=== PATIENT | female | born 1955 | race Asian ===

== ENCOUNTER 2018-12-23 14:30 | Outpatient (AMBR) | payer MEDICARE, MEDICAID, SELFPAY ==
--- NOTE | 2018-12-06 14:18 | PT.ODAYNRPT ---
PT Outpatient Daily Note Date of Service: December 06, 2018 OP Daily Note Pediatric or Adult Patient: Adult PT >13 Visit Reasons: shoulder pain Outpatient Physical Therapy Treatment Date: 12/06/18 Subjective: no new complaints Objective: pls see FS Assessment: Patient were given gentle passive stretching with joint mobilization tech. Patient has pain upon movement. ROM AROM //. PROM Shoulder flexion 118 deg // 140 deg Abduction 90 deg // 100 deg ER 10 deg // 20 deg IR 70 deg // 80 deg Plan: To continue POC toward goals Pain Present Currently: Yes Length of Time (minutes) of Treatment: 30 Minutes
--- NOTE | 2018-12-09 12:25 | PT.ODAYNRPT ---
PT Outpatient Daily Note Date of Service: December 09, 2018 OP Daily Note Pediatric or Adult Patient: Adult PT >13 Visit Reasons: shoulder pain Outpatient Physical Therapy Treatment Date: 12/09/18 Subjective: No new complaints Objective: pls see FS for therapy procedure today. Assessment: Patient were given strengthening ex on LUE to promote ms strengthening and joint mobilization technique. Patient has LOM on all movement of the L shoulder. Patient were given yellow TB to do HEP at home. Plan: To continue POC toward goals. Pain Present Currently: Yes Length of Time (minutes) of Treatment: 30 Minutes Office Procedures PT Procedures PT Date of Service: 12/06/18 Therapeutic Exercise 15 minutes: Yes Manual Registered Nurse Fetal 15 minutes: Yes
--- NOTE | 2018-12-13 14:11 | PTNOTE_ITS ---
PT Outpatient Daily Note Date of Service: December 13, 2018 OP Daily Note Visit Reasons: shoulder pain Outpatient Physical Therapy Treatment Date: 12/13/18 Subjective: pt reported having pain of the shoulder upon visit. pt has diffiuclty with language barrier but tried her best to give feedback. Objective: see flow sheet. Assessment: pt had the most difficulty with the body blade exercise as she was not able to keep momentum instead she would move her arm around. cued and demonstrated correct form but pt was having trouble. fair mid back activation during exercises as palpated her mid traps for cuing of correct muscle activation. pt had no complaints during treatment. Plan: continue POC per PT. Length of Time (minutes) of Treatment: 30 Minutes Office Procedures PT Procedures PT Date of Service: 12/06/18 Therapeutic Exercise 15 minutes: Yes Manual Monument Setter Helper 15 minutes: Yes PT Procedures PT Date of Service: 12/09/18 Therapeutic Exercise 30 minutes: Yes PT Procedures PT Date of Service: 12/13/18 Therapeutic Exercise 30 minutes: Yes
--- NOTE | 2018-12-16 15:58 | PTNOTE_ITS ---
PT Outpatient Daily Note Date of Service: December 16, 2018 OP Daily Note Visit Reasons: shoulder pain Outpatient Physical Therapy Treatment Date: 12/16/18 Subjective: pt shook her head yes when asked if shes doing well today. pt does not give much feedback. Objective: see flow sheet. Assessment: added new exercises for shoulder strength using thera band and noted compensation with back extension. cued pt to stand upright and demonstrated the correct form. pt attempted but after a dew reps she compensated again. pt does have limited mobility and ROM of the L shoulder compared to the R shoulder but she completed all reps. pt had no complaints during after treatment. informed pt about possible soreness. Plan: continue POC per PT. Length of Time (minutes) of Treatment: 30 Minutes Office Procedures PT Procedures PT Date of Service: 12/06/18 Therapeutic Exercise 15 minutes: Yes Manual Crown Assembly Machine Set Up Mechanic 15 minutes: Yes PT Procedures PT Date of Service: 12/09/18 Therapeutic Exercise 30 minutes: Yes PT Procedures PT Date of Service: 12/13/18 Therapeutic Exercise 30 minutes: Yes PT Procedures PT Date of Service: 12/16/18 Therapeutic Exercise 30 minutes: Yes
--- NOTE | 2018-12-23 15:50 | PTNOTE_ITS ---
PT Outpatient Daily Note Date of Service: December 23, 2018 OP Daily Note Visit Reasons: shoulder pain Outpatient Physical Therapy Treatment Date: 12/23/18 Subjective: Pt shoulder is feeling much better. Pt mention that she's able to reach up overhead with less pain. Pt still has pain but less intense. Objective: Please see flow chart for list of ther ex performed Assessment: cues to correct IR/ER and row band exercise. Pt continues to improve with shoulder AROM with less pain towards end range Plan: Continue with PT Length of Time (minutes) of Treatment: 30 Minutes Office Procedures PT Procedures PT Date of Service: 12/06/18 Therapeutic Exercise 15 minutes: Yes Manual Personal Development Coach 15 minutes: Yes PT Procedures PT Date of Service: 12/09/18 Therapeutic Exercise 30 minutes: Yes PT Procedures PT Date of Service: 12/23/18 Therapeutic Exercise 30 minutes: Yes PT Procedures PT Date of Service: 12/13/18 Therapeutic Exercise 30 minutes: Yes PT Procedures PT Date of Service: 12/16/18 Therapeutic Exercise 30 minutes: Yes
== END 2019-01-04 23:59 | disposition home or self-care (01) ==
PROVIDERS: PCP Physician Assistant; Referring Provider Physician Assistant; Visit Provider Physician Assistant
DX: M25.512 Pain in left shoulder (principal); M54.2 Cervicalgia
CPT/HCPCS: 97110; 97140

== ENCOUNTER 2019-02-28 11:30 | Outpatient (AMBR) | payer MEDICARE, MEDICAID, SELFPAY ==
--- NOTE | 2019-02-07 11:56 | PT.ODAYNRPT ---
PT Outpatient Daily Note Date of Service: February 07, 2019 OP Daily Note Visit Reasons: SHOULDER PAIN Outpatient Physical Therapy Treatment Date: 02/07/19 Subjective: pt did not have complaints upon visit today. pt very quite. Objective: see flow sheet. Assessment: pt had difficulty with single arm rows due to weakness. she tends to extend the elbow and rotate her trunk to compensate for mobility. corrected pt with max cuing but still needs time to improve her form. advised pt to continue HEP. added 2# dumbbells for shoulder strengthening in which causes fatigue towards the end of the 1st set. pt takes rest breaks in between and continued to complete the exercise. Plan: continue POC per PT. Length of Time (minutes) of Treatment: 30 Minutes Office Procedures PT Procedures PT Date of Service: 02/07/19 Therapeutic Exercise 30 minutes: Yes
--- NOTE | 2019-02-18 11:01 | PT.ODAYNRPT ---
PT Outpatient Daily Note Date of Service: February 18, 2019 OP Daily Note Visit Reasons: SHOULDER PAIN Outpatient Physical Therapy Treatment Date: 02/18/19 Subjective: pt states her shoulder feels the same but has no pain. Objective: see flow sheet. Assessment: added horizontal abd using thera band with single hand and pt had difficulty. she compensates a lot due to weakness. she tends to twist her body and elbow flex to try and perform the exercises. cued pt a few times to correct but she needs more practice. demonstrated correct form but pt was still not understanding. pt does have limited mobility of the shoulder which causes compensation of the shoulder joint. had to place my hand on her L scap to prevent trunk rotation. when placing my hand on her scap it forces her shoulder to active the correct muscle groups in which she does not have strength in. Plan: continue POC per PT. Length of Time (minutes) of Treatment: 30 Minutes Office Procedures PT Procedures PT Date of Service: 02/07/19 Therapeutic Exercise 30 minutes: Yes PT Procedures PT Date of Service: 02/18/19 Therapeutic Exercise 30 minutes: Yes
--- NOTE | 2019-02-24 11:13 | PT.ODAYNRPT ---
PT Outpatient Daily Note Date of Service: February 24, 2019 OP Daily Note Visit Reasons: SHOULDER PAIN Outpatient Physical Therapy Treatment Date: 02/24/19 Subjective: Patient reports L shoulder pain 5/10 for today. Objective: Please see FS. Assessment: Pt able to tolerate exercises for today. Observed below functional ROM of 100 degrees with L shoulder abduction using 1# free weight. Performed L GH joint mobs posterior/inferior grade 2-3 w/ distraction. Pt exhibits improved shoulder flexion/abduction; reduced pain symptoms after treatment and ice pack. Plan: Continue POC per PT. Pain Present Currently: Yes Length of Time (minutes) of Treatment: 30 Minutes Office Procedures PT Procedures PT Date of Service: 02/07/19 Therapeutic Exercise 30 minutes: Yes PT Procedures PT Date of Service: 02/18/19 Therapeutic Exercise 30 minutes: Yes
--- NOTE | 2019-02-28 12:04 | PT.ODAYNRPT ---
PT Outpatient Daily Note Date of Service: February 28, 2019 OP Daily Note Visit Reasons: SHOULDER PAIN Outpatient Physical Therapy Treatment Date: 02/28/19 Subjective: Patient reports having L shoulder pain 2/10 for today. Objective: Please see FS. Assessment: Pt able to tolerate todays exercises without difficulty. Currently exhibits functional shoulder flexion ROM at 140 degrees; shoulder abduction ROM less than functional at 90 degrees. Performed GH mobilization grade 2-3 posterior / inferior glides w/ distraction. Pt declines ice pack after treatment. Plan: Continue POC per PT. Pain Present Currently: Yes Length of Time (minutes) of Treatment: 30 Minutes Office Procedures PT Procedures PT Date of Service: 02/07/19 Therapeutic Exercise 30 minutes: Yes PT Procedures PT Date of Service: 02/18/19 Therapeutic Exercise 30 minutes: Yes PT Procedures PT Date of Service: 02/24/19 Therapeutic Exercise 30 minutes: Yes
== END 2019-03-06 23:59 | disposition home or self-care (01) ==
PROVIDERS: PCP Physician Assistant; Referring Provider Physician Assistant; Visit Provider Physician Assistant
DX: M25.512 Pain in left shoulder (principal); M54.12 Radiculopathy, cervical region
CPT/HCPCS: 97110

== ENCOUNTER 2019-03-24 13:30 | Outpatient (AMBR) | payer MEDICARE, MEDICAID, SELFPAY ==
--- NOTE | 2019-03-11 13:11 | PT.ODAYNRPT ---
PT Outpatient Daily Note Date of Service: March 11, 2019 OP Daily Note Visit Reasons: shoulder pain Outpatient Physical Therapy Treatment Date: 03/11/19 Subjective: pt states her shoulder feels ok at times but other times it still bothers her due to pain. Objective: see flow sheet. Assessment: pt has trouble holding onto the thera band and needs assistance. her shoulder joint mobility is limited due to pain and weakness as observed during OH motion. she can lift the 2# fine with her R shoulder but has a slower pace with her L shoulder. pt fatigues and tends to compensate with elbow flexion during shoulder rows. although with demonstration she still compensates. Plan: continue POC per PT. Length of Time (minutes) of Treatment: 30 Minutes Office Procedures PT Procedures PT Date of Service: 03/11/19 Therapeutic Exercise 30 minutes: Yes
--- NOTE | 2019-03-14 15:43 | PT.ODAYNRPT ---
PT Outpatient Daily Note Date of Service: March 14, 2019 OP Daily Note Visit Reasons: shoulder pain Outpatient Physical Therapy Treatment Date: 03/14/19 Subjective: pt feeling the same upon visit. having the same issue with the L shoulder. Objective: see flow sheet. Assessment: added new exercise in which she did well in keeping the momentum but had fair pace with each rep. she did not c/o of the new exercise. during her single arm shoulder abd using thera band noted better ROM with less muscle fatigue. she is able to keep her form with no compensation. advised pt to continue with her HEP and strengthen her single arm as well. Plan: continue POC per PT. Length of Time (minutes) of Treatment: 30 Minutes Office Procedures PT Procedures PT Date of Service: 03/14/19 Therapeutic Exercise 30 minutes: Yes PT Procedures PT Date of Service: 03/11/19 Therapeutic Exercise 30 minutes: Yes
--- NOTE | 2019-03-24 13:44 | PT.ODS1RPT ---
PT OP Progress/Discharge Note Date of Service: March 24, 2019 Progress Note/DC Note Progress Note/Discharge Note: DC Note Patient Information Pediatric or Adult Patient: Adult PT >13 Visit Reasons: shoulder pain Medical Diagnosis: L shoulder pain Treatment Dx #1: L shoulder pain Service Continue Service or Discharge: Discharge Physical Therapy Outpatient Service Dates: From: / To:: 11/11/2018 to 03/24/2019 Discharge Date: 03/24/19 Status Subjective: Patient has been feeling better. Still complains of pain but is less compared to the initial evaluation. Patient has good functional ROM on her L shoulder. Less episodes of pain. Objective: L shoulder AROM// PROM Abduction 115 // 125 flexion 150//160 deg IR 50 //65 ER 40//50 MMT 4+/5 grossly graded PS4/10 at night. Assessment: Patient was seen for 20 tx session. The pain is still bothering her at night. She made a significant improvement on her L shoulder ROM. Patient were advised if it is still bothering her in a great deal to go back to her PCP for further recommendation. As of this time patient will be dc from PT services secondary to maximum rehab potential achieved as of this time. Patient were given HEP to be done at home with printout. Patient was doing her ex and is compliant with HEP. Plan: dc from PT services. Treatment Provided This POC: Thera ex Manual tx Goals Achieved: i with HEP L shoulder is WFL Pain on the L shoulder at worst is 4/10 at best is 0/10 Discharge Comment: patient will be dc from PT services secondary to maximum rehab potential achieved as of this time. Office Procedures PT Procedures PT Date of Service: 03/14/19 Therapeutic Exercise 30 minutes: Yes PT Procedures PT Date of Service: 03/11/19 Therapeutic Exercise 30 minutes: Yes
== END 2019-04-06 23:59 | disposition home or self-care (01) ==
PROVIDERS: PCP Physician Assistant; Referring Provider Physician Assistant; Visit Provider Physician Assistant
DX: M25.512 Pain in left shoulder (principal)
CPT/HCPCS: 97110

== ENCOUNTER → 2024-11-25 | Outpatient (CLI) | payer MEDICARE, MEDICAID, SELFPAY ==
--- NOTE | 2024-11-25 16:00 | XR_ITS ---
Examination: Carotid arterial duplex scan, ultrasound. Date and time of exam: November 25, 2024 1521 hours INDICATIONS: Dizziness episodes intermittent beginning one month ago Technique: Multiple sonographic images have been obtained of the carotid arteries and vertebral arteries, B-mode/grayscale imaging and Doppler spectral analysis and color flow Peak systolic and diastolic velocities have been recorded. Systolic diastolic ratios have been calculated. Findings: Right peak systolic velocities: Distal internal carotid artery peak systolic velocity is 0.7 M/sec Proximal internal carotid artery peak systolic velocity is 0.5 M/sec Carotid bifurcation peak systolic velocity is 0.9 M/sec External carotid artery peak systolic velocity is 1.0 M/sec Vertebral artery flow is antegrade. Left peak systolic velocities: Distal internal carotid artery peak systolic velocity is 0.8 M/sec Proximal internal carotid artery peak systolic velocity is 0.5 M/sec Carotid bifurcation peak systolic velocity is 0.8 M/sec External carotid artery peak systolic velocity is 0.8 M/sec Vertebral artery flow is antegrade Doppler waveform analysis demonstrates no spectral broadening Impression: Right internal carotid artery demonstrates 0-10% stenosis. Left internal carotid artery demonstrates 0-10% stenosis.
== END | disposition home or self-care (01) ==
LOC: CDIM 15:38
PROVIDERS: PCP Physician Assistant; Referring Provider Physician Assistant; Visit Provider Physician Assistant
DX: R42 Dizziness and giddiness (principal); E78.5 Hyperlipidemia, unspecified
CPT/HCPCS: 93880

== ENCOUNTER 2024-12-06 00:32 | Emergency (ER) | payer MEDICARE, MEDICAID, SELFPAY ==
[2024-12-06 00:44] VITALS: BP 142/87; PULSE 85; RESP 15; TEMP 36.9; O2SAT 95
[2024-12-06 00:53] VITALS: BMI 23.8
[2024-12-06 01:05] VITALS: PULSE 86; O2SAT 97
[2024-12-06 01:10] VITALS: TEMP 37.1
--- NOTE | 2024-12-06 01:19 | PC.NURSE ---
PT BIB IMPERIAL DUE TO WEAKNESS AT HOME, PT IS PERUVIAN SPEAKING, PER EMS SON SAID SOB AND WEAKNESS.
--- NOTE | 2024-12-06 01:19 | PC.NURSE ---
PT IN ROOM WITH SON , HE STATES THAT SHE HAS HAD WEAKNESS AND LEGS ARE SHAKING THEY CALLED AMBULANCE FOR CONCERNS OF WEAKNESS AND PT SHAKING. PT LOWER LEGS ARE HAS VISIBLE SHAKING.
--- NOTE | 2024-12-06 02:25 | XR_ITS ---
Examination: AP chest single view FINDINGS: AP portable upright chest single view Exam date and time: December 06, 2024, 0250 hours INDICATIONS: Chest pain today FINDINGS: Normal heart size Mild opacity at the lung bases No gary pulmonary edema Mild vascular congestion Significant osteopenia IMPRESSION: Suspicious for early bibasilar pneumonia
--- NOTE | 2024-12-06 02:25 | PD.EDWEAK ---
ED Weakness RME/HPI General Chief complaint: Weakness Stated complaint: WEAKNESS Time Seen by Provider: 12/06/24 00:54 Arrival date/time: 12/06/24 00:32 RME / HPI RME / HPI Narrative: Dr. Miller?[facility] Main ED Evaluation: 69yo male with a history of HTN, DM BIBA from home presents to the ED for a chief complaint of generalized weakness. Patient's son states the patient has been having intermittent episodes of fatigue for the last 4-5 days, reporting her symptoms would improve after she was massaged. Patient reports having a 6-7 out of 10 headache, back of neck pain, shakiness to her legs, and a loss of appetite. She denies any dysuria, chest pain, shortness of breath or any other associated symptoms. No known allergies. Related Data Home Medications ?Medication ?Instructions ?Recorded ?Confirmed B-complex with vitamin C 1 tab PO QDAY 12/06/24 12/06/24 atorvastatin 20 mg tablet 20 mg PO QDAY 12/06/24 12/06/24 finerenone 10 mg tablet (Kerendia) 10 mg PO QDAY 12/06/24 12/06/24 meclizine 25 mg tablet 25 mg PO QID 12/06/24 12/06/24 metformin 1,000 mg tablet 1,000 mg PO QDAY 12/06/24 12/06/24 Previous Rx's ?Medication ?Instructions ?Recorded nitrofurantoin 100 mg PO Q12H 7 days #14 caps 12/06/24 monohydrate/macrocrystals 100 mg capsule (Macrobid) Allergies Allergy/AdvReac Type Severity Reaction Status Date / Time NKA* Allergy Uncoded 12/06/24 00:49 Review of Systems Review of Systems Systems Reviewed: All systems reviewed, normal except as documented Past Medical History Past Medical History CARDIAC: Positive Cardiac Disorders and Hypertension; Negative Congestive Heart Failure RESPIRATORY: Negative Chronic Obstructive Pulmonary Disease (COPD) GENITOURINARY: Negative Renal Disease ENDOCRINE: Positive Diabetes Mellitus Type 2; Negative Diabetes Mellitus Type 1 OTHER HISTORY: Positive Falls Social History SMOKING STATUS: Never smoker ED Exam Narrative Physical exam: GENERAL APPEARANCE: alert and oriented x 4, well-developed, well-nourished, no acute distress VITALS: All vitals were reviewed and the pulse ox is 95% on room air, which is normal according to my interpretation. HEENT: Normocephalic, atraumatic; pupils equal, round, reactive to light; EOMI; mucous membranes pink, moist; oropharynx clear NECK: Supple LUNGS: CTABL; no wheezes, no rales, no rhonchi HEART: Regular rate, regular rhythm; normal S1, S2; no murmurs ABDOMEN: non distended; normal BS; soft, no tenderness, no guarding, no rebound; no masses, no organomegaly, no hernia BACK: no CVA tenderness EXTREMITIES: atraumatic; no edema NEUROLOGIC: awake; alert and oriented x4; cranial nerves II-XII grossly intact; no focal sensory or motor deficits PSYCHIATRIC: appropriate mood and affect SKIN: warm, dry, normal color; no rashes Course Course Course Narrative: CXR is ordered for determining the etiology of weakness. Quality Measures none Orders Category Date Time Status Senior Production Manager STAT Care 12/06/24 02:25 Active Continuous Pulse Oximetry ONCE Care 12/06/24 02:25 Active EKG (ED ONLY) *Do not use* NOW Care 12/06/24 02:25 Completed Insert IV STAT Care 12/06/24 02:25 Completed EKG (ED Only) Stat Exams 12/06/24 02:25 Ordered XR chest 1V portable Stat Exams 12/06/24 02:25 Taken B-Type Natriuretic Peptide Stat Lab 12/06/24 02:45 Completed CBC Stat Lab 12/06/24 02:45 Completed Comprehensive Metabolic Panel Stat Lab 12/06/24 02:45 Completed Free T4 (Free Thyroxine) Stat Lab 12/06/24 02:45 Completed Magnesium Stat Lab 12/06/24 02:45 Completed Partial Thromboplastin Time Stat Lab 12/06/24 02:45 Completed Prothrombin Time with INR Stat Lab 12/06/24 02:45 Completed TSH [Thyroid Stimulating Hormone] Stat Lab 12/06/24 02:45 Completed Troponin I Stat Lab 12/06/24 02:45 Completed Urinalysis, C/S if Indicated Stat Lab 12/06/24 03:33 Completed DiphenhydrAMINE INJ [Benadryl Inj] Med 12/06/24 02:30 Discontinued 12.5 mg IVP X1 ONE Ketorolac Inj [Toradol Inj] Med 12/06/24 02:30 Discontinued 15 mg IVP X1 ONE Metoclopramide Inj [Reglan Inj] Med 12/06/24 02:30 Discontinued 10 mg IVP X1 ONE Sodium Chloride 0.9% 500 ml [Ns] 500 ml Med 12/06/24 02:25 Discontinued IV 999 mls/hr Vital Signs Vital signs: Vital Signs Temperature 98.4 F 12/06/24 00:44 Pulse Rate 85 12/06/24 00:44 Respiratory Rate 15 12/06/24 00:44 Blood Pressure 142/87 H 12/06/24 00:44 Pulse Oximetry (%) 95 12/06/24 00:44 Oxygen Delivery Method Room Air 12/06/24 00:44 Weakness MDM Narrative MDM Narrative:: Scribe Attestation: 12/06/24 - Mckayla, Mary Gonsales am scribing for and in the presence of Dr. Miller. Patient data External records reviewed:: [facility] previous records (Per chart review, patient has no previous ED visits or admissions to this facility.) Clinical information provided by:: patient and family Social determinants that could affect healthcare access:: none Patient has the following chronic illnesses:: HTN, DMII How is presenting disease/condition affected by chronic disease/condition?: exacerbated by Evaluation data The following diagnostics were reviewed and interpreted by me:: lab results, radiology exam(s) and EKG tracing(s) Lab and/or radiology exams considered but not ordered:: none Interpretation Summary: CBC is normal, CMP is normal, PT and INR are normal, BNP is normal, TSH and Free T4 are normal, UA is positive for a UTI, according to my interpretation. CXR shows normal cardiac silhouette, normal sharp diaphragmatic edge, no infiltrates, normal costophrenic angles, according to my interpretation EKG done at 0057, NSR, rate of 85, left axis deviation, Q waves in lead III and avF, no ectopy, no acute ischemia, according to my interpretation. Medications / Prescriptions Medications or Prescriptions considered but not ordered:: none Medication administrations:: Medication Administration History Discontinued Medications Diphenhydramine HCl (Diphenhydramine Inj 50 Mg/Ml Vial) 12.5 mg IVP X1 ONE Stop: 12/06/24 02:31 Last Admin: 12/06/24 03:03 Dose: 12.5 mg Documented By: JOY Sodium Chloride (Ns) 500 mls @ 999 mls/hr IV .Q31M ONE Stop: 12/06/24 02:55 Last Infusion: 12/06/24 03:32 Dose: Infused Documented By: Admin: 12/06/24 03:01 Dose: 999 mls/hr Documented By: JOY Ketorolac Tromethamine (Ketorolac Inj 30 Mg/Ml Vial) 15 mg IVP X1 ONE Stop: 12/06/24 02:31 Last Admin: 12/06/24 03:01 Dose: 15 mg Documented By: JOY Metoclopramide HCl (Metoclopramide Inj 5 Mg/Ml Vial 2 Ml) 10 mg IVP X1 ONE; Protocol Stop: 12/06/24 02:31 Last Admin: 12/06/24 03:04 Dose: 10 mg Documented By: JOY see above Consultations Consultation(s) initiated? (list below): No Diagnosis Weakness Differential Diagnosis: anemia, sepsis, dehydration and other (electrolyte abnormality) Most likely diagnosis given after review of the tests above:: see clinical impression below Admission Indicated Admission indicated?: not indicated Admission Request Was there a request for admission?: No Disposition Plan Disposition Plan: Discharge Discharge Attestation Discharge Attestation: The patient and all family members were given an opportunity to ask questions and understood the discharge instructions. Discharge instructions specifically effects, indications for sooner follow up or return to the emergency department, and the expected course of current diagnosis. Patient condition: Stable Discharge Plan Plan Patient Disposition: HOME (Self Care) Disposition Comment: Stable for discharge Patient condition on transfer: Stable Prescriptions/Referrals Prescriptions/Med Rec: New nitrofurantoin monohyd/m-cryst [Macrobid] 100 mg capsule 100 mg PO Q12H 7 Days Qty: 14 0RF Rx Instructions: must administer with a meal/food No Action meclizine 25 mg tablet 25 mg PO QID B-complex with vitamin C Tablet 1 tab PO QDAY atorvastatin 20 mg tablet 20 mg PO QDAY metformin 1,000 mg tablet 1,000 mg PO QDAY Kerendia 10 mg tablet 10 mg PO QDAY Referrals: [facility] [Outside] - In 1 week Adalgisa Tobar PA-C [Primary Care Provider] - In 1 week Problem List Clinical Impression: UTI (urinary tract infection), Fatigue Patient/Caregiver Discharge Instructions Discharge Activity: activity as tolerated Education Materials: Urinary Tract Infections in Women Additional Instructions: Please return to the emergency department if you have any worsening or any further medical problems and we will help you. Otherwise you should follow-up with your primary care doctor or in the family health care clinic within the next several days. Print Language: Jeremiah Stand Alone Forms: Radha Award Info., Patient Portal Info Letter
[2024-12-06 02:59] LABS: Basophils # (Auto) 0.1 Thou/mm3 (0.0-0.2); Basophils % (Auto) 1 % (0-2.5); Eosinophils % (Auto) 10 % (0-10); Hematocrit 39.9 % (36.0-46.0); Hemoglobin 13.4 g/dL (12.0-16.0); Immature Granulocytes % (Auto) 0 % (0-0); Immature Granulocytes Auto 0.03 Thou/mm3 (0.00-0.00); Lymphocytes # (Auto) 2.2 Thou/mm3 (1.0-4.8); Lymphocytes % (Auto) 21 % (10-50); Mean Corpuscular HGB Conc 33.6 g/dl (31.0-37.0); Mean Corpuscular Hemoglobin 28.1 pg (25.0-35.0); Mean Corpuscular Volume 84 fL (80-100); Monocytes # (Auto) 0.6 Thou/mm3 (0.0-0.8); Monocytes % (Auto) 6 % (0-12); Neutrophils # (Auto) 6.3 Thou/mm3 (1.8-7.7); Neutrophils % (Auto) 63 % (37-80); Nucleated Red Blood Cell % 0 /100 WBC (0); Platelet Count 205 Thou/mm3 (140-440); RDW Standard Deviation 43.1 fL (36.4-46.3); Red Blood Count 4.77 Miln/mm3 (4.00-5.20); White Blood Count 10.1 Thou/mm3 (3.6-11.0)
[2024-12-06] MEDS: SODIUM CHLORIDE 0.9% 500 ML 500 ML 999 ML IV (03:01)
[2024-12-06] MEDS: KETOROLAC INJ 30 MG/ML VIAL 15 MG IVP (03:01)
[2024-12-06] MEDS: DiphenhydrAMINE INJ 50 MG/ML VIAL 12.5 MG IVP (03:03)
[2024-12-06] MEDS: METOCLOPRAMIDE INJ 5 MG/ML VIAL 2 ML 10 MG IVP (03:04)
[2024-12-06 03:19] LABS: Partial Thromboplastin Time 29.4 Seconds (22.0-36.0); Prothrombin Time 10.6 Seconds (9.0-12.2)
[2024-12-06 03:26] LABS: Alanine Aminotransferase 25 U/L (10-49); Albumin, Serum 4.5 gm/dL (3.4-4.8); Albumin/Globulin Ratio 1.5 (1.2-2.2); Alkaline Phosphatase 66 U/L (46-116); Anion Gap 9 (7-16); Aspartate Amino Transferase 23 U/L (0-34); BUN/Creatinine Ratio 15 Ratio (12-20); Bilirubin,Total 0.6 mg/dL (0.3-1.2); Blood Urea Nitrogen 18 mg/dL (9-23); Calcium 9.7 mg/dL (8.3-10.6); Calcium (Corrected) 9.7 mg/dL (8.5-10.1); Carbon Dioxide 23.8 mMol/L (20.0-31.0); Chloride 102 mMol/L (98-107); Creatinine (Component) 1.2 mg/dL (0.6-1.3); Estimated Creatinine Clearance 40.3 mL/min (>60); Free T4 (Free Thyroxine) 1.44 ng/dL (0.89-1.76); Globulin 3.1 gm/dL (2.3-3.5); Glucose 108 mg/dL (74-106); Magnesium 1.9 mg/dL (1.6-2.6); Osmolality,Calculated 273 (275-295); Potassium 4.2 mMol/L (3.4-5.1); Sodium 135 mMol/L (136-145); Thyroid Stimulating Hormone 2.89 uIU/mL (0.55-4.78); Total Protein 7.6 gm/dL (5.7-8.2); Troponin I < 0.002 ng/mL (0.0-0.045); eGFR 48 See Note
[2024-12-06 03:35] LABS: B-Type Natriuretic Peptide < 20 pg/mL (0-100)
[2024-12-06 03:52] LABS: Collection Type, Urine Catheter
--- NOTE | 2024-12-06 03:55 | PC.LAC ---
IN AND OUT CATH NOT DONE PT PROVIDED URINE
[2024-12-06 03:58] VITALS: BP 144/73; PULSE 73; RESP 21; TEMP 36.8; O2SAT 95
[2024-12-06 04:40] LABS: Bacteria,Urine Rare; Bilirubin,Urine Negative (Negative); Blood,Urine Negative (Negative); Clarity,Urine Clear (Clear/Hazy); Color,Urine Colorless (Lt Yel-Yel); Culture Indicated,Urine Not Indicated; Glucose, Urine Negative (Negative); Ketones,Urine Negative (Negative); Leukocyte Esterase,Urine Positive (Negative); Nitrite,Urine Negative (Negative); Protein,Urine Negative (Neg - Trace); RBC,Urine 2 /hpf (0-3); Squamous Epithelial Cell,Urine 2 /hpf (0-5); Urobilinogen,Urine Negative mg/dL (0.0-1.0); WBC,Urine 6 /hpf (0-5)
[2024-12-06 05:03] VITALS: BP 136/81; PULSE 79; RESP 20; TEMP 36.4; O2SAT 95
== END 2024-12-06 05:11 | disposition home or self-care (01) ==
PROVIDERS: Emergency Provider Emergency Medicine; PCP Physician Assistant
DX: N39.0 Urinary tract infection, site not specified (principal); R53.83 Other fatigue; I10 Essential (primary) hypertension; E11.9 Type 2 diabetes mellitus without complications
CPT/HCPCS: 36415; 71045; 80053; 81001; 83735; 83880; 84439; 84443; 84484; 85025; 85610; 85730; 93005; 96361; 96374; 96375; 99284; J1200; J1885; J2765; J7040